=== PATIENT | female | born 1940 | race Caucasian/White ===

== ENCOUNTER 2019-07-24 11:25 | Emergency (ER) | payer MEDICARE, OTHER ==
--- NOTE | 2019-07-24 11:52 | RAD ---
XR Chest Pa Lat STANDARD HISTORY: Cough COMPARISON: 01/17/2012 FINDINGS: The heart size is normal. The aorta is tortuous. There are changes of COPD. The lungs are w ell expanded without focal areas of consolidation, pneumothorax or pleural effusions. IMPRESSION: No radiographic evidence of acute cardiopulmonary process.
== END 2019-07-24 15:16 | disposition home or self-care (01) ==
LOC: ERS 11:25
DX: J18.9 Pneumonia, unspecified organism (principal); F17.210 Nicotine dependence, cigarettes, uncomplicated
CPT/HCPCS: 71046; 94640; 99406; J7620

== ENCOUNTER 2019-09-03 10:06 | Outpatient (CLI) | payer MEDICARE, OTHER ==
--- NOTE | 2019-09-03 10:24 | RAD ---
XR Chest Pa Lat @ [facility] HISTORY: Dyspnea COMPARISON: 07/24/2019 FINDINGS: The heart size is normal. Changes of COPD are again seen. The lungs are well expanded witho ut focal areas of consolidation, pneumothorax or pleural effusions. IMPRESSION: No radiographic evidence of acute cardiopulmonary process.
== END 2019-09-03 10:07 | disposition home or self-care (01) ==
LOC: RAD 10:06
PROVIDERS: ATTEND Internal Medicine Critical Care Medicine
DX: R06.00 Dyspnea, unspecified (principal)
CPT/HCPCS: 71046

== ENCOUNTER 2019-09-13 13:34 | Outpatient (CLI) | payer MEDICARE, OTHER ==
--- NOTE | 2019-09-13 14:44 | BD ---
Exam: DEXA Bone Density 09/13/19 HISTORY: Postmenopausal. 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 POS: [facility]
== END 2019-09-13 13:35 | disposition home or self-care (01) ==
LOC: BICMAMMO 13:34
PROVIDERS: ATTEND Nurse Practitioner Adult Health
DX: Z13.820 Encounter for screening for osteoporosis (principal); M81.0 Age-related osteoporosis without current pathological fracture
CPT/HCPCS: 77080